=== PATIENT | female | born 1970 | race Caucasian/White ===

== ENCOUNTER 2023-05-04 13:41 | Emergency (ER) | payer OTHER ==
[2023-05-04 13:52] VITALS: BP 121/53; PULSE 60; RESP 18; TEMP 97.5; BMI 18.5
[2023-05-04] MEDS ORDERED: ACETAMINOPHEN 500 MG TABLET (FP) PO ONE (15:10)
[2023-05-04] MEDS ORDERED: ACETAMINOPHEN 500 MG TABLET (FP) ONE (15:11)
== END 2023-05-04 15:13 | disposition home or self-care (01) ==
LOC: JERFT 13:41
DX: S09.90XA Unspecified injury of head, initial encounter (principal); M54.2 Cervicalgia; W08.XXXA Fall from other furniture, initial encounter; Y99.0 Civilian activity done for income or pay
CPT/HCPCS: 99283-25